=== PATIENT | male | born 1945 | race Two or more races ===

== ENCOUNTER 2019-01-22 07:20 | Inpatient (IN) | payer MEDICARE, OTHER ==
[~2019-01-22] VITALS: Ht 165.1 cm; Wt 83.9 kg
--- NOTE | 2019-01-22 07:30 | NUR ---
ADMISSION NOTE PT ARRIVED AT THIS TIME TO THE FLOOR AMBULATORY AND IN STABLE CONDITION. A/O X4 BREATHING EVEN AND UNLABORED ON RA WITH NO S/S OF ANY DISTRESS OR PAIN AT THIS TIME, IV PLACED IN RIGHT AC GAUGE 18, CONSENTS FOR SURGERY SIGNED, NOTED TO HAVE MINOR SCRATCHES ON HIS BODY, SAFETY PRECAUTIONS IN PLACE, CALL LIGHT IN REACH, WILL MONITOR ACCORDINGLY
[2019-01-22] MEDS ORDERED: ATOR40TA PO (07:54)
[2019-01-22] MEDS ORDERED: METF500T7 PO (07:54)
[2019-01-22] MEDS ORDERED: ASPI-1169 PO (07:54)
--- NOTE | 2019-01-22 08:25 | NUR ---
RN NOTE PT TAKEN DOWN FOR SURGERY AT THIS TIME
[2019-01-22] MEDS ORDERED: MIDAZOLAM HCL 2 MG/2ML VIAL ONE ×2 (09:00)
[2019-01-22] MEDS ORDERED: FENTANYL PF 100MCG/2ML AMPUL ONE (09:01)
[2019-01-22] MEDS ORDERED: SCOPOLAMINE HBR 1 EA PATCH.TD72 TD ONE (09:01)
[2019-01-22] MEDS ORDERED: BACITRACIN 50000 UNITS/VIAL ONE (09:52)
[2019-01-22] MEDS ORDERED: TRANEXAMIC ACID 3,000 MG in SODIUM CHLORIDE IRRIG SOLUTION 70 ML IR ONE (10:30)
[2019-01-22] MEDS ORDERED: BUPIVACAINE MPF 0.5% W/EPI INJ 30 ML VIAL ONE (11:32)
[2019-01-22] MEDS ORDERED: HYDROCODONE/APAP 5/325MG 1 EACH TABLET PO PRN ×2 (12:00→14:30)
[2019-01-22] MEDS ORDERED: ONDANSETRON HCL/PF 4 MG/2 ML VIAL IVP PRN ×2 (12:30→14:30)
[2019-01-22] MEDS ORDERED: IV D5/0.45 NACL 1,000 ML IV PRN (12:30)
[2019-01-22] MEDS ORDERED: ACETAMINOPHEN 325 MG TABLET PO PRN ×2 (12:30→14:30)
[2019-01-22 13:00] VITALS: BP 122/75
--- NOTE | 2019-01-22 13:00 | NUR ---
RN NOTE: RECEIVED THE PATIENT AT ROOM 110 AND BEDSIDE REPORT WAS GIVEN BY KYUNG COKER FOR CONTINUITY OF CARE. PATIENT WAS ADMITTED TO TELEMETRY DUE TO AN EPISODE OF BRADYCARDIA DURING THE SURGERY. PATIENT WAS S/P (L) TOTAL SHOULDER ARTHROPLASTY WITH DR. TOVAR. POST-OP ORDERS WERE RECEIVED FROM DR. TOVAR. PER KYUNG COKER NURSE SHE FAXED THE ORDER TO THE PHARMACY AND SHE CALLED DR. RUFFIN REGARDING THE CONSULT FOR THE PAIN MANAGEMENT. PATIENT WAS AWAKE, ALERT AND VERBALLY RESPONSIVE. BREATHING EVENLY AND NOT ON ANY FORM OF DISTRESS SATURATING 97% IN ROOM AIR. HOB ELEVATED. PATIENT WAS ON UPRIGHT POSITION. (R) AC IV SITE NOTED PATENT AND INTACT. MARLEEN, WAS PRESENT UPON TRANSFER TO THE UNIT. INTRODUCED SELF. AFEBRILE. SKIN WARM TO TOUCH. DRESSING ON THE (L) SHOULDER WAS NOTED INTACT AND DRY WITH A (L) SHOULDER SLING IN PLACED. PATIENT DENIED ANY PAIN. PATIENT REQUESTED FOR ICE CHIPS. CALL LIGHT WITHIN REACH. NEEDS ANTICIPATED. PATIENT MADE COMFORTABLE AND INFORMED THAT THE ADMITTING DOCTOR WILL BE PAGE FRO ADMISSION ORDERS. PATIENT REMAINED SINUS BRADYCARDIA ON THE TUB MENDER HR= 57. NO DIZZINESS NOTED.
[2019-01-22] MEDS ORDERED: IV NS 0.9% 1,000 ML IV PRN (14:07)
[2019-01-22] MEDS ORDERED: Z GUARD REMEDY 2 OZ OINT TP PRN (14:30)
[2019-01-22] MEDS ORDERED: MORPHINE SULFATE INJ 2 MG/ML DISP.SYRIN IV PRN (14:30)
[2019-01-22] MEDS ORDERED: MAG HYDROX/AL HYDROX/SIMETH 30 ML UDC PO PRN (14:30)
[2019-01-22] MEDS ORDERED: ZOLPIDEM TARTRATE 5 MG TABLET PO PRN ×2 (14:30→22:00)
[2019-01-22] MEDS ORDERED: MAGNESIUM HYDROXIDE 30 ML UDC PO PRN (14:30)
[2019-01-22 16:00] VITALS: BP 130/72
--- NOTE | 2019-01-22 16:10 | NUR ---
RN NOTE: DR. RUFFIN CAME IN TO SEE THE PATIENT AND MD DID NOT ORDER A HEAVY DUTY TRUCK MECHANIC FOR THE PATIENT. PER MD, HE WOULD WRITE ORDERS FOR PAIN MEDICATIONS AND HE EXPLAINED IT TO THE PATIENT AT THE BEDSIDE. , MARLEEN AND SON RAKAN WAS PRESENT.
[2019-01-22] MEDS ORDERED: diphenhydrAMINE HCL 25 MG CAPSULE PO PRN (16:30)
[2019-01-22] MEDS ORDERED: MORPHINE SULFATE INJ 4 MG/ML DISP.SYRIN IV PRN (16:30)
[2019-01-22] MEDS ORDERED: oxyCODONE IR immediate release 5 MG PO PRN (16:30)
[2019-01-22] MEDS ORDERED: MORPHINE SULFATE INJ 4 MG/ML DISP.SYRIN IM PRN (16:30)
--- NOTE | 2019-01-22 16:45 | NUR ---
RN NOTE: DR. RUFFIN ORDERED TO START THE PATIENT WITH CLEAR LIQUID DIET AND ADVANCE TOLERATED. PATIENT MADE AWARE.
[2019-01-22] MEDS: ANCEF 1 GM/50 ML D5W IV SCH ×2 (17:43)
[2019-01-22] MEDS: DOCUSATE SODIUM 100 MG CAPSULE PO SCH (17:45)
[2019-01-22] MEDS ORDERED: ANCEF 1 GM/50 ML D5W IV SCH ×2 (18:00)
[2019-01-22] MEDS ORDERED: oxyCODONE IR immediate release 5 MG PO ONE (18:00)
[2019-01-22] MEDS ORDERED: DEXTROSE 50%-WATER 50 ML DISP.SYRIN IV PRN (19:30)
[2019-01-22] MEDS ORDERED: INSULIN REGULAR, HUMAN 100 UNIT/ML 3 ML VIAL SQ PRN (19:30)
[2019-01-22] MEDS ORDERED: *INSULIN REGULAR(HUMULIN R)HUM 100 UNIT/ML VIAL SQ PRN (19:30)
--- NOTE | 2019-01-22 19:30 | NUR ---
PRE SCHOOL TEACHER NOTE RECEIVED PATIENT A/OX4 WITH NO SIGN OF DISTRESS. PATIENT IS ON ROOM AIR WITH NO SIGNS OF SOB. PATIENT HAS IV ACCESS ON RT HAND #22G PATENT AND FLUSHING. PATIENT IS AMBULATORY WITH ASSISTANCE IF NEEDED. SKIN IS INTACT. ALL SAFETY PRECAUTIONS APPLIED. CALL LIGHT WITHIN REACH, BED LOCKED IN POSITION, AND SIDE RAILS UP X2. WILL CONTINUE TO MONITOR
--- NOTE | 2019-01-22 19:30 | NUR ---
RN NOTE: BEDSIDE REPORT WAS GIVEN TO PM SHIFT NURSE FOR CONTINUITY OF CARE. NEW IV LINE ON THE (R) HAND WAS INSERTED AND THE (R) AC IV SITE WAS NOTED LEAKING. OLD IV SITE WAS REMOVED. PATIENT ATE 100% OF HIS DINNER. TOLERATED CLEAR LIQUID DIET. REMAINED FREE OF PAIN AT THIS TIME.
[2019-01-22 20:00] VITALS: BP 124/73
[2019-01-22] MEDS: oxyCODONE IR immediate release 5 MG PO PRN (21:51)
[2019-01-22] MEDS: FAMOTIDINE (20 MG) 20 MG TABLET PO SCH (21:51)
[2019-01-22] MEDS: BLOOD SUGAR DIAGNOSTIC 1 EACH STRIP VI SCH (21:51)
[2019-01-22] MEDS ORDERED: BISACODYL SUPP (10 MG) 10 MG/SUPP.RECT SUPP.RECT RC PRN (22:00)
[2019-01-22] MEDS ORDERED: DOCUSATE SODIUM 250 MG CAPSULE PO PRN (22:00)
[2019-01-22] MEDS ORDERED: SENNOSIDES 8.6 MG TABLET PO PRN (22:00)
[2019-01-23] VITALS: BP 120/61
[2019-01-23] MEDS: oxyCODONE IR immediate release 5 MG PO PRN (01:55)
[2019-01-23] MEDS: ANCEF 1 GM/50 ML D5W IV SCH ×2 (02:55)
[2019-01-23 04:00] VITALS: BP 135/69
[2019-01-23] MEDS: BLOOD SUGAR DIAGNOSTIC 1 EACH STRIP VI SCH (06:49)
[2019-01-23 06:59] LABS: BASOPHILS % (AUTO) 0.2 % (0.0-2.0); EOSINOPHILS % (AUTO) 0.8 % (0.0-6.0); HEMATOCRIT 41 % (39-51); HEMOGLOBIN 13.6 g/dL (13.5-17.5); LYMPHOCYTES # (AUTO) 1.8 /CMM (0.8-4.8); LYMPHOCYTES % (AUTO) 15.4 % (20.0-44.0); MEAN CORPUSCULAR HGB CONC 33 g/dl (31.0-36.0); MEAN CORPUSCULAR VOLUME 95 fL (80-96); MONOCYTES # (AUTO) 1.1 /CMM (0.1-1.30); MONOCYTES % (AUTO) 9.3 % (2.0-12.0); NEUTROPHILS # (AUTO) 8.5 /CMM (1.8-8.9); NEUTROPHILS % (AUTO) 74.3 % (43.0-81.0); PLATELET COUNT (AUTO) 145 /CMM (150-450); RED BLOOD CELL COUNT(AUTO) 4.31 MIL/uL (4.5-6.0); WHITE BLOOD COUNT (AUTO) 11.5 K/uL (4.3-11.0)
[2019-01-23 07:21] LABS: THYROID STIMULATING HORMONE 2.691 uIU/mL (0.358-3.74)
[2019-01-23 07:27] LABS: CALCIUM, SERUM 8.3 mg/dL (8.5-10.1); MAGNESIUM 1.9 mg/dL (1.8-2.4); PHOSPHORUS 4.3 mg/dL (2.5-4.9); POTASSIUM 4.1 mmol/L (3.5-5.1)
--- NOTE | 2019-01-23 07:32 | NUR ---
MS RN CLOSING NOTE PATIENT IN BED WITH NO SIGNS OF DISTRESS OR DISCOMFORT. ON ROOM AIR WITH NO SOB. PAIN MGMT HAS BEEN ADDRESSED TO MORNING NURSE. ALL SAFETY PRECAUTIONS APPLIED. ENDORSED PATIENT TO MORNING NURSE
--- NOTE | 2019-01-23 07:43 | NUR ---
VENTILATING EQUIPMENT INSTALLER NOTE RECEIVED PATIENT A/OX4 WITH NO SIGN OF DISTRESS. PATIENT IS ON ROOM AIR WITH NO SIGNS OF SOB. PATIENT HAS IV ACCESS ON RT HAND #22G PATENT AND FLUSHING. PATIENT IS AMBULATORY WITH ASSISTANCE IF NEEDED. SKIN IS INTACT ABLE TO GO TO BR SELF ON TELE MONITOR SB HR SB 53 AT THIS TIME . ALL SAFETY PRECAUTIONS APPLIED. CALL LIGHT WITHIN REACH, BED LOCKED IN POSITION, AND SIDE RAILS UP X2. WILL CONTINUE TO MONITOR,PLANOF CARE DISCUSSED WITH PATIENT
[2019-01-23 08:00] VITALS: BP 114/59
[2019-01-23] MEDS: DOCUSATE SODIUM 100 MG CAPSULE PO SCH (08:12)
[2019-01-23] MEDS: FAMOTIDINE (20 MG) 20 MG TABLET PO SCH (08:13)
[2019-01-23] MEDS ORDERED: PSYLLIUM SEED 1 PKT PACKET PO SCH (09:00)
[2019-01-23] MEDS ORDERED: ASPIRIN 325 MG TABLET PO SCH (09:00)
[2019-01-23] MEDS ORDERED: oxyCODONE/APAP (5/325 MG) 1 UDTAB TABLET PO PRN (09:30)
--- NOTE | 2019-01-23 09:30 | NUR ---
AUTOMATION MACHINE OPERATOR NOTE ORTHO JAY CARRINGTON SEEN PATENT OK TO DISCHARGE HOME WITH F\U WITH JOSE ENGEL TO KEEP DRESSING IN PLACE AWARE THAT OXYCODONE PO GIVEN FOR PAIN
--- NOTE | 2019-01-23 10:00 | NUR ---
SPINDLE REPAIRER NOTE FURNACE HAND AT BEDSIDE AWARE THAT HR 53 STATED STILL OK OK TO DISCHARGE HOME
--- NOTE | 2019-01-23 10:53 | NUR ---
ELECTRICAL ASSEMBLER NOTE SEEN BY DR SINA GARCIA TO DISCHARGE HOME
--- NOTE | 2019-01-23 11:43 | NUR ---
RECAPPER NOTE DISCHARGE INSTRUCTION, UNDERSTOOD , HL REMOVED ,NO BLEEDING NOTED PRESSURE DRESSING PLACED , TELE REMOVED , INSTRUCTED TO F\U WITH PRIMARY CARE AND DR LA MAO , KEEP DRESSING INTACT AND LT SHOULDER SLING ,EXPLAINED HOW TO TAKE HOME MEDS,PX WAS GIVEN EARLIER AND POSSIBLE SIDE EFFECTS EXPLAINED ,BELONGING SIGNED, AT BEDSIDE,TAKEN TO LOBBY OB W\C WITH STABLE CONDITION
== END 2019-01-23 12:07 | disposition home or self-care (01) | DRG 483 ==
LOC: DS 07:20 → MED 07:21 → TELE-TD 10:05 → MED 10:05 → TELE1 13:10 → MEDSG1 13:10 → MED 13:10 → MEDSG1 14:42 → TELE-TD 14:42
PROVIDERS: ADMIT Student in an Organized Health Care Education/Training Program; ATTEND Internal Medicine
PROC: 0RRK0JZ Replacement of Left Shoulder Joint with Synthetic Substitute, Open Approach (ICD-10-PCS; principal; 2019-01-22)
DX: M19.012 Primary osteoarthritis, left shoulder (principal); E66.9 Obesity, unspecified; E78.5 Hyperlipidemia, unspecified; E11.9 Type 2 diabetes mellitus without complications; Z68.30 Body mass index [BMI] 30.0-30.9, adult; D69.6 Thrombocytopenia, unspecified; I10 Essential (primary) hypertension; K21.9 Gastro-esophageal reflux disease without esophagitis; R00.1 Bradycardia, unspecified; I35.0 Nonrheumatic aortic (valve) stenosis; H02.409 Unspecified ptosis of unspecified eyelid; D72.829 Elevated white blood cell count, unspecified; Z79.84 Long term (current) use of oral hypoglycemic drugs; M75.102 Unspecified rotator cuff tear or rupture of left shoulder, not specified as traumatic; S43.082A Other subluxation of left shoulder joint, initial encounter; X58.XXXA Exposure to other specified factors, initial encounter; Y93.9 Activity, unspecified; Y92.009 Unspecified place in unspecified non-institutional (private) residence as the place of occurrence of the external cause
CPT/HCPCS: 36415; 80048-TC; 80061-TC; 82962-TC; 83735-TC; 84100-TC; 84443-TC; 85025-TC; 87081-TC; 88305-TC; 88311-TC; 93307-TC; 97116-TC; 97530-TC; G0378; J0461; J0690; J1100; J1815; J2250; J2704; J3010; J3490; J7060